=== PATIENT | male | born 1975 | race Caucasian/White ===

== ENCOUNTER 2024-07-04 05:40 | Day surgery (SDC) | payer BC ==
[~2024-07-04] VITALS: Ht 177.8 cm; Wt 131.0 kg
[~2024-07-04 05:40] MED LIST: ALLEGRA ALLERG180 MG PO; B COMPLEX1 EACH PO; FLONASE ALLERG9.9 ML NAS; MIDAZOLAM HCL 5 MG/5 ML VIAL IV PRN; MUCINEX FAST-M180 M4 PO; MULTIVITAMINS1 EAC7 PO; OMEPRAZOLE20 M1 PO; PROAIR HFA8.5 GM INH; QVAR7.3 G1 INH; SUDOGEST30 MG PO; XYZAL5 MG PO; ZYRTEC10 MG PO; fentaNYL citrate 100 MCG/2 ML VIAL IV PRN
[2024-07-04 06:02] VITALS: BP 139/86
[2024-07-04] MEDS ORDERED: IBLOOD GLUCOSE TEST STRIP 1 EA TEST VI PRN (07:00)
[2024-07-04] MEDS ORDERED: LIDOCAINE HCL 1% 5 ML SDV INJ ONE (07:00)
[2024-07-04] MEDS ORDERED: LACTATED RINGER'S 1,000 ML IV SCH (07:00)
[2024-07-04] MEDS ORDERED: propofoL 200 MG/20 ML VIAL ONE (07:11)
[2024-07-04] MEDS ORDERED: LIDOCAINE HCL 2% 5 ML SDV ONE (07:11)
--- NOTE | 2024-07-04 08:01 | NUR ---
07/04/24 0801 Reema Heck [id number]-PATIENT ARRIVED TO PACU ON 6L MASK RR EVEN SNORING. NONAROUSABLE. LAYING LEFT LATERAL ABDOMEN SOFT. IVF INFUSING.
[2024-07-04 08:25] VITALS: BP 127/81
--- NOTE | 2024-07-04 09:35 | OR ---
[facility] [address] [place], [place] [address] Signed DATE OF OPERATION: 07/04/2024 SURGEON: Rell Ortega MD PREOPERATIVE DIAGNOSES: 1. Screening. 2. Maternal grandmother with colon cancer at age 96. POSTOPERATIVE DIAGNOSES: 1. [id number] external anal skin tags. 2. Polyps, 3 mm x3 at 5 cm in rectum. 3. Polyp, 4 mm at 40 cm in left colon. 4. Polyps, 3 mm x3 at 22 cm in distal sigmoid colon. PROCEDURE: Colonoscopy with hot biopsy. ESTIMATED BLOOD LOSS: None. INDICATIONS: Ching is a 48-year-old gentleman, asked to see me for his initial screening colonoscopy. I helped him back in 2017 at the age of 40 with an upper endoscopy. Consequently, he is familiar with this process. He told me his maternal grandmother had developed colon cancer at age 96, that is really not particularly concerning issue for him. He has no lower GI complaints. In the meantime, he has developed sleep apnea and requiring a CPAP mask. He also has a full face fraser and mustache. 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 I explained to him it would be goyal to have monitored anesthesia care on this occasion. In that regard, he needed preoperative blood work and an EKG. I did give him a pamphlet on colonoscopy. We reviewed the nature of that test. 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 There is risk including, but not limited to gas bloating, crampy abdominal pain, bleeding, perforation requiring surgery, and missed diagnosis. We also reviewed the written instructions for the bowel prep line by line. He understands an adult person has to take him home afterwards. He had expressed understanding and wished to proceed. DESCRIPTION OF PROCEDURE: Ching was taken into our endoscopy suite and placed in the left lateral decubitus position. He was given monitored anesthesia care per our nurse underground mine machinery mechanic. A digital rectal exam was performed. He has several small- to moderate-sized external anal skin Electronically Signed By: RELL ORTEGA MD 07/04/24 0935 PATIENT NAME: CHING OLIVEIRA OPERATIVE REPORT DATE OF : 75 REPORT #: [id number] PHYSICIAN: RELL ORTEGA MD PCP: TIANA THAKUR REPORT IS CONFIDENTIAL AND NOT TO BE RELEASED WITHOUT AUTHORIZATION [facility] [address] [place], [place] [address] Signed tags. He had good sphincter tone. There were no masses. The prostate is starting to get a little indurated. The adult colonoscope was introduced and advanced under direct visualization of the camera into the cecum itself. His prep was quite good. We could easily see the appendiceal orifice and ileocecal valve. The scope was then slowly withdrawn. The above-mentioned polyps were easily removed with the help of hot biopsy forceps. The scope was then retroflexed in the rectum and really no internal hemorrhoids. After this, the gas was suctioned out, colonoscope removed. Ching tolerated the procedure quite well. RECOMMENDATIONS: I will see Ching back in my office in 7 to 14 days to review his results. He might be on the 10-year plan or the 5-year plan depending on the pathology report. Rell Ortega MD ALB/MODL /[id number] cc: MD Tiana Thapa PA Patient Chart Copies: RELL ORTEGA MD, LINDA PA ~ Electronically Signed By: RELL ORTEGA MD 07/04/24 0935 PATIENT NAME: CHING OLIVEIRA JADA OPERATIVE REPORT DATE OF : 75 REPORT #: [id number] PHYSICIAN: RELL ORTEGA MD PCP: TIANA THAKUR REPORT IS CONFIDENTIAL AND NOT TO BE RELEASED WITHOUT AUTHORIZATION
--- NOTE | 2024-07-08 11:40 | PATH ---
[facility] [address] [place], [place] [address] Signed SPECIMEN(S): A RECTAL POLYP AT 5 CM SPECIMEN(S): B DESCENDING COLON POLYP AT 40 CM SPECIMEN(S): C SIGMOID POLYP AT 22 CM SPECIMEN SOURCE: A. RECTAL POLYP AT 5 CM B. DESCENDING COLON POLYP AT 40 CM C. SIGMOID POLYP AT 22 CM CLINICAL HISTORY: Family history of colon CA. Postop: Colon and rectal polyps, external anal skin tags. FINAL PATHOLOGIC DIAGNOSIS: A. Rectal polyp of 5 cm: - Hyperplastic polyp, negative for dysplasia. B. Descending colon polyp at 40 cm: - Hyperplastic polyp, negative for dysplasia. C. Sigmoid polyp at 22 cm: - Hyperplastic polyp, negative for dysplasia. NA MICROSCOPIC EXAMINATION: Histologic sections of all submitted blocks are examined by light microscopy. These findings, together with the gross examination, support the pathologic diagnosis. GROSS DESCRIPTION: A. The specimen, labeled and designated "Gavin, D, rectal polyp of 5 cm," is received in formalin and consists of two shannon soft tissue fragments, ranging from 0.2-0.3 cm. Entirely submitted in (A1). B. The specimen, labeled and designated "[place], D, descending colon polyp at 40 cm," is received in formalin and consists of one shannon soft tissue fragment, 0.3 cm. Entirely submitted in (B1). C. The specimen, labeled and designated "Shelden, D, sigmoid polyp at 22 cm," is received in formalin and consists of two shannon soft tissue fragments, ranging from 0.2-0.3 cm. Entirely submitted in (C1). AB (under the direct supervision of a pathologist) The Gross Description was prepared using a voice recognition system. The report was reviewed for accuracy; however, sound-alike word errors, addition and/or PATIENT NAME: CHING OLIVEIRA PATHOLOGY DATE OF : 75 REPORT #: [id number] PHYSICIAN: [facility] PCP: KERRI THAKUR REPORT IS CONFIDENTIAL AND NOT TO BE RELEASED WITHOUT AUTHORIZATION [facility] [address] [place], [place] [address] Signed deletions may occur. If there is any question about this report, please contact Client Services. ADDITIONAL NOTES: Immunohistochemical and/or in situ hybridization studies if performed in this case included appropriate positive controls that reacted as expected. This test was developed and its performance characteristics determined by [facility]. It has not been cleared or approved by the U.S. Food and Drug Administration. The FDA has determined that such clearance or approval is not necessary. This test is used for clinical purposes. It should not be regarded as investigational or for research. [facility] is certified under the Clinical Laboratory Improvement Amendments of 1988 (CLIA) as qualified to perform high complexity clinical laboratory testing. PERFORMING LABORATORY: Technical component was performed by [facility], [address] [place] [id number] (CLIA# [id number]). Professional interpretation was performed by [facility], [address] [place] [address] (CLIA#: [id number]). Diagnostician: Melyssa Summers MD Pathologist Electronically Signed 07/08/2024 Copies: ~ PATIENT NAME: CHING OLIVEIRA PATHOLOGY DATE OF : 75 REPORT #: [id number] PHYSICIAN: [facility] PCP: KERRI THAKUR REPORT IS CONFIDENTIAL AND NOT TO BE RELEASED WITHOUT AUTHORIZATION
== END 2024-07-04 08:30 | disposition home or self-care (01) ==
LOC: DS 05:40 → DSVR 05:41 → DS 08:30
PROVIDERS: ATTEND Colon & Rectal Surgery
PROC: 0DBN8ZZ Excision of Sigmoid Colon, Via Natural or Artificial Opening Endoscopic (ICD-10-PCS; 2024-07-04)
PROC: 0DBP8ZZ Excision of Rectum, Via Natural or Artificial Opening Endoscopic (ICD-10-PCS; 2024-07-04)
PROC: 0DBG8ZZ Excision of Left Large Intestine, Via Natural or Artificial Opening Endoscopic (ICD-10-PCS; principal; 2024-07-04 07:30)
DX: Z12.11 Encounter for screening for malignant neoplasm of colon (principal); K63.5 Polyp of colon; K62.1 Rectal polyp; K64.4 Residual hemorrhoidal skin tags; M94.0 Chondrocostal junction syndrome [Tietze]; K21.9 Gastro-esophageal reflux disease without esophagitis; G47.33 Obstructive sleep apnea (adult) (pediatric); Z80.0 Family history of malignant neoplasm of digestive organs
CPT/HCPCS: 00812; J2003; J2704; J7121